=== PATIENT | female | born 1975 | race Caucasian/White ===

== ENCOUNTER 2024-11-22 09:42 | Outpatient (CLI) | payer OTHER, SELFPAY ==
--- NOTE | 2024-11-22 09:40 | NEURO_ITS ---
Impression: # Known diabetic complains of numbness and cramps in lower extremities. ? # Axonal motor/sensory Neuropathy with neurogenic changes on Needle/ EMG exam ? # No myotonic and No active fibrillations. Nerve Conduction Studies ?Stim Site NR Peak (ms) P-T Amp (?V) Site1 Site2 Delta-P (ms) Dist (cm) Tl (m/s) Left Sup Fibular Anti Sensory (Ant Lat Mall) 14 cm ? 3.8 9.0 14 cm Ant Lat Mall 3.8 16.0 42 Right Sup Fibular Anti Sensory (Ant Lat Mall) 14 cm ? 3.6 11.6 14 cm Ant Lat Mall 3.6 16.0 44 Left Sural Anti Sensory (Lat Mall)??? NO RESPONSE Calf NR Calf Lat Mall 16.0 Right Sural Anti Sensory (Lat Mall) Calf ? 4.5 5.7 Calf Lat Mall 4.5 16.0 36 ?Stim Site NR Onset (ms) O-P Amp (mV) Site1 Site2 Delta-0 (ms) Dist (cm) Tl (m/s) Left Peroneal Motor (Vastus Med) Ankle ? 4.4 1.3 Popit Ankle 9.4 40.0 43 Popit ? 13.8 0.7 Right Peroneal Motor (Vastus Med) Ankle ? 4.1 2.2 Popit Ankle 9.7 40.0 41 Popit ? 13.8 1.7 Left Tibial Motor (Abd Horn Brev) Ankle ? 5.2 3.8 Knee Ankle 10.3 41.0 40 Knee ? 15.5 2.9 Right Tibial Motor (Abd Horn Brev) Ankle ? 5.1 1.7 Knee Ankle 10.3 41.0 40 Knee ? 15.4 0.9 F Wave Studies ?NR F-Lat (ms) L-R F-Lat (ms) Left Peroneal (Mrkrs) (EDB) ? 53.55 0.12 Right Peroneal (Mrkrs) (EDB) ? 53.66 0.12 Left Tibial (Mrkrs) (Abd Hallucis) ? 60.01 1.09 Right Tibial (Mrkrs) (Abd Hallucis) ? 61.10 1.09 Electromyography ?Side Muscle Nerve Root Ins Act Fibs Amp Dur Recrt Comment Right AntTibialis Dp Br Fibular L4-5 Nml Nml Nml >12ms +1 Left AntTibialis Dp Br Fibular L4-5 Nml Nml Nml >12ms +1 Right Ext Dig Brev Dp Br Fibular L5, S1 Nml Nml Nml >12ms +2 Left Ext Dig Brev Dp Br Fibular L5, S1 Nml Nml Nml >12ms +2 Right Fibularis Long Sup Br Fibular L5-S1 Nml Nml Nml >12ms +1 Left Fibularis Long Sup Br Fibular L5-S1 Nml Nml Nml >12ms +1 Right Flex Dig Long Tibial L5-S2 Nml Nml Nml >12ms +1 Left Flex Dig Long Tibial L5-S2 Nml Nml Nml >12ms +1 Right Gastroc Tibial S1-2 Nml Nml Nml >12ms +1 Left Gastroc Tibial S1-2 Nml Nml Nml >12ms +1 Right QuadratusFem QuadFemoris L4-5, S1 Nml Nml Nml >12ms +1 Left QuadratusFem QuadFemoris L4-5, S1 Nml Nml Nml >12ms +1
--- OUTSIDE RECORDS SUMMARY | 2024-11-22 10:50 | XMS_ITS | Encounter Summary ---
Author Organization [facility] Address [address] [place] [address] Care Team Providers Care Manager Android Name Role Phone Janet Jorge MD Primary Care Provider [phone] Encounter Details Date Type Department Care Team (Late st Contact Info) Description 07/15/2018 Abstract SFL CONVERSION [address] [place] [address] , Generic Conversion, Social History Tobacco Use Types Packs/Day Years Used Date Smoking Tobacco: Never Assessed Comments Unknown Sex and Gender Information Value Date Recorded Sex Assigned at Female 08/18/2018 3:06 PM CDT Legal Sex Female 8:00 PM CDT Gender Identity Female 08/18/2018 3:06 PM CDT Sexual Orientation Not on file documented as of this encounter Plan of Treatment Not on file documented as of this encounter Visit Diagnoses Not on filedocumented in this encounter Care Teams Manager Android Relationship Specialty [place] [address] [place] [address] PCP - General FAMILY PRACTICE 08/18/18 documented as of this encounter
--- OUTSIDE RECORDS SUMMARY | 2024-11-22 10:50 | XMS_ITS | Clinical Summary ---
Author Organization [facility] Address [address] [place] [address] Care Team Providers Care Business Development Assistant Name Role Phone Janet Jorge MD Primary Care Provider [phone] Allergies Active Allergy Reactions Criticality Noted Date Comments Penicillins Rash Low 10/01/2016 Medications FLOVENT HFA 220 MCG/ACT inhaler Inhale 2 puffs into the lungs 2 (two) times daily. 07/21/2018 Active hydrochlorothia zide 25 MG tablet Take 1 tablet by mouth daily. 08/16/2018 Active labetalol 200 MG tablet Take 2 tablets by mouth 2 (two) times daily. 08/16/2018 Active VICTOZA 18 MG/3ML injection Inject 1.8 mg into the skin daily. 06/23/2018 Active lisinopril 10 MG tablet Take 1 tablet by mouth daily. 08/16/2018 Active rosuvastatin 40 MG tablet Take 20 mg by mouth daily. 06/15/2018 Active metFORMIN 500 MG tablet Take 2,000 mg by mouth every evening. Active albuterol sulfate HFA 108 (90 Base) MCG/ACT inhaler Inhale 2 puffs into the lungs every 6 (six) hours as needed for Wheezing. Active canagliflozin 100 MG tablet Take 100 mg by mouth every morning before breakfast. Active Active Problems Problem Noted Date Diagnosed Date External thrombosed hemorrhoids 08/18/2018 Diabetes mellitus, type 2 10/01/2016 Hyperlipidemia 10/01/2016 Hypertension 10/01/2016 Resolved Problems Problem Noted Date Diagnosed Date Resolved Date Encounter for preventive health examination 07/26/2016 08/18/2018 Family History Medical History Relation Comments Cancer Father pre-diabetes Mother Heart Neg Hx Hypertension Neg Hx Stroke Neg Hx Relation Status Comments Father Mother Social History Tobacco Use Types Packs/Day Years Used Date Smoking Tobacco: Former Cigarettes Q uit: 1998 Smokeless Tobacco: Never Alcohol Use Standard Drinks/Week Comments No 0 (1 standard drink = 0.6 oz pur e alcohol) AUDIT-C Answer Date Recorded Frequency of Alcohol Consumption Never 08/18/2018 Average Number of Drinks Not on file 019 Frequency of Binge Drinking Not on file 08/07 Comments Unknown Sex and Gender Information Value Date Recorded Sex Assigned at Female 08/18/2018 3:06 PM CDT Legal Sex Female 8:00 PM CDT Gender Identity Female 08/18/2018 3:06 PM CDT Sexual Orientation Not on file Last Filed Vital Signs Vital Sign Reading Time Taken Comments Blood Pressure 132/85 08/09/2019 1:53 PM CDT Pulse 84 08/09/2019 3:43 PM CDT Temperature 36.8 C (98.2 F) 08/09/2019 1:53 PM CDT Respiratory Rate 16 08/09/2019 3:43 PM CDT Oxygen Saturation 100% 08/09/2019 3:43 PM CDT Inhaled Oxygen Concentration - - Weight 122.2 kg (269 lb 6.4 oz) 08/09/2019 1:53 PM CDT Height 170.2 cm (5' 7) 08/09/2019 1:53 PM CDT Body Mass Index 42.19 08/09/2019 1:53 PM CDT Plan of Treatment Health Maintenance Due Date Last Done Comments Cervical Cancer Screening Pa p Smear (Age 30 to 64) Every 3 Years 1975 Colorectal Cancer Screening Colonoscopy (10 Years) 1975 Kidney Health Evaluation 1975 Hemoglobin A1C 1975 Lipid Panel 1975 Annual Physical 11/21/1978 Diabetes: Retinopathy Eye Exam 11/21/1993 Hepatitis C 11/21/1993 DTaP, Tdap and Td Vaccines ( 1 - Tdap) 11/21/1994 Hepatitis B Vaccines (1 of 3 - 19+ 3-dose series) 11/21/1994 Pneumococcal Vaccine: Pediat rics (0 to 5 Years) and At-Risk Patients (6 to 49 Years) (1 of 2 - PCV) 11/21/1994 Cervical Cancer Screening Pa p with HPV Testing (Age 30 to 64) Every 5 Years 11/21/2005 Cervical Cancer Screening with HPV 11/21/2005 Mammogram Screening 2015 COVID-19 Vaccine (2023-2 5 season) 2024 Influenza Adult (#1) 2024 Meningococcal B Vaccine Aged Out No l onger eligible based on patient's age to complete this topic Meningococcal Vaccine Aged Out No aneudy elmer eligible based on patient's age to complete this topic RSV Immunizations Under 20 Months Aged Out No longer eligible based on patient's age to complete this topic [place] [address] [facility] Care Teams Business Development Assistant Relationship Specialty [place] [address] [place] [address] PCP - General FAMILY PRACTICE 08/18/18
== END 2024-11-22 09:43 | disposition home or self-care (01) ==
LOC: ANHNEURO 09:45
DX: G62.9 Polyneuropathy, unspecified (principal)
CPT/HCPCS: 95886; 95910